=== PATIENT | male | born 1965 | race Caucasian/White ===

== ENCOUNTER → 2024-09-27 07:06 | Outpatient (REF) | payer OTHER, SELFPAY | LOC: RAD 07:06 | PROVIDERS: ATTENDING PHYSICIAN Student in an Organized Health Care Education/Training Program; FAMILY PHYSICIAN Family Medicine | DX: R10.11 Right upper quadrant pain (principal); R10.12 Left upper quadrant pain | CPT/HCPCS: 74177; Q9967 ==

== ENCOUNTER 2024-11-20 06:20 | Day surgery (SDC) | payer OTHER, SELFPAY | END 2024-11-20 15:42 | disposition home or self-care (01) | LOC: GI 06:20 | PROVIDERS: ATTENDING PHYSICIAN Student in an Organized Health Care Education/Training Program | DX: R10.12 Left upper quadrant pain (principal); R10.11 Right upper quadrant pain; K44.9 Diaphragmatic hernia without obstruction or gangrene; K25.9 Gastric ulcer, unspecified as acute or chronic, without hemorrhage or perforation; K22.89 Other specified disease of esophagus; K31.A0 Gastric intestinal metaplasia, unspecified; K29.50 Unspecified chronic gastritis without bleeding | CPT/HCPCS: 43239; 88305; 88342 ==

== ENCOUNTER 2025-01-25 06:37 | Day surgery (SDC) | payer OTHER, SELFPAY | END 2025-01-25 12:56 | disposition home or self-care (01) | LOC: GI 06:37 | PROVIDERS: ATTENDING PHYSICIAN Student in an Organized Health Care Education/Training Program | DX: K25.3 Acute gastric ulcer without hemorrhage or perforation (principal); K22.89 Other specified disease of esophagus; K44.9 Diaphragmatic hernia without obstruction or gangrene; K25.9 Gastric ulcer, unspecified as acute or chronic, without hemorrhage or perforation; K31.89 Other diseases of stomach and duodenum | CPT/HCPCS: 43239; 88305; 88342 ==